=== PATIENT | female | born 1950 | race Caucasian/White ===

== ENCOUNTER 2023-10-28 06:17 | Day surgery (SDC) | payer OTHER, SELFPAY ==
[2023-10-24 13:26] VITALS: BMI 24.3
[2023-10-28 06:56] VITALS: BMI 23.4
[2023-10-28 06:59] VITALS: BP 152/69; PULSE 66; RESP 16; TEMP 36.1; O2SAT 99
--- NOTE | 2023-10-28 07:18 | HO.ANESPROP2 ---
HPI - Anesthesia Eval Consult details Narrative: 72 yo F presenting for colonoscopy [facility] Past Medical History Medical History Diverticulosis Neuropathy Osteoporosis HTN (hypertension) Surgical History Surgical History Hx of cholecystectomy History of colon resection History of total replacement of both hip joints History of surgery H/O colonoscopy History of Problems with Anesthesia: No Social History Social History Patient Tobacco Use Status: Never used Tobacco Use of substances other than those prescribed or required for medical reasons: No Are you DNR?: No Advance Directives: No Advance Directives Information Provided: Yes Meds Allergies Allergy/AdvReac Type Severity Reaction Status Date / Time amlodipine Allergy Unknown Verified 10/24/23 13:28 blueberry Allergy Unknown Verified 10/24/23 13:28 environmental allergies Allergy Unknown Verified 10/24/23 13:28 losartan Allergy Unknown Verified 10/24/23 13:28 Home Medications Medication Instructions Recorded Confirmed Last Taken Type albuterol sulfate 90 mcg/actuation 2 puff inhalation Q4-6H PRN 10/24/23 10/24/23 Unknown History aerosol inhaler (Ventolin HFA) Allergy Symptoms ascorbic acid (vitamin C) 125 mg 125 mg PO DAILY 10/24/23 10/24/23 Unknown History chewable tablet (Vitamin C) aspirin 81 mg tablet,delayed 81 mg PO DAILY 10/24/23 10/24/23 Unknown History release gabapentin 100 mg capsule 300 mg PO BEDTIME 10/24/23 10/24/23 Unknown History lisinopril 40 mg tablet 40 mg PO DAILY 10/24/23 10/24/23 Unknown History loratadine 10 mg tablet (Claritin) 10 mg PO DAILY 10/24/23 10/24/23 Unknown History meclizine 25 mg tablet 25 mg PO DAILY PRN Vertigo 10/24/23 10/24/23 Unknown History melatonin 3 mg tablet 3 mg PO BEDTIME 10/24/23 10/24/23 Unknown History montelukast 10 mg tablet 10 mg PO DAILY PRN Allergy Symptoms 10/24/23 10/24/23 Unknown History multivitamin 1 tab PO DAILY 10/24/23 10/24/23 Unknown History pantoprazole 20 mg tablet,delayed 20 mg PO DAILY 10/24/23 10/28/23 10/28/23 05:30 History release Exam Exam Date and Time: October 28, 2023 0720 Height,Weight and Vital Signs: Height 5 ft 3 in Weight 59.874 kg Last Vital Signs Temp 97.0 F 10/28/23 06:59 Pulse 66 10/28/23 06:59 Resp 16 10/28/23 06:59 BP 152/69 H 10/28/23 06:59 Pulse Ox 99 10/28/23 06:59 O2 Del Method Room Air 10/28/23 06:59 Airway Mallampati Class: I TM Dist: >3cm Neck ROM: Full Loose/Missing/Broken Teeth: No Heart: S1S2 Lungs: CTAB Assessment and Plan Assessment Anesthesia Assessment: Anesthesia Plan Discussed and Chart Reviewed Final Anesthetic Review History of Problems with Anesthesia: No NPO: Yes ASA Class: II Final Preanesthetic Review: No Changes in Pt Med Stat, Meds/Allgs Chart Reviewed, Consent Obtained/Reviewed and Anes Risks/Benef Reviewed Patient Risk: Low Procedure Risk: Low Anesthetic Plan Anesthetic Plan: MAC: and Agree w/ Assess. and Plan Disposition: Standard PACU
--- NOTE | 2023-10-28 07:34 | MHC.SHP ---
Pre-Procedural Eval Section A Date of Service: 10/28/23 Section B Chief Complaint: Encounter for screening for malignant neoplasm of Details of Present Illness: see H*P no changes Relevant Family History (Specify if Yes): No Relevant Social History: None Present Medications: None Allergies: Allergies Allergy/AdvReac Type Severity Reaction Status Date / Time amlodipine Allergy Unknown Verified 10/24/23 13:28 blueberry Allergy Unknown Verified 10/24/23 13:28 environmental allergies Allergy Unknown Verified 10/24/23 13:28 losartan Allergy Unknown Verified 10/24/23 13:28 Review of Systems Sugical H&P ROS: Negative: Constitution, Cardiovascular, Respiratory, Neurological, Psychiatric, Hem-Onc, Allergic/Immunologic, Gastrointestinal, Genitourinary, Musculoskeletal, Integumentary, Endocrine and Eyes/Ears/Nose/Throat Exam Surgical H&P Exam: Normal: HEENT, Normal: Heart, Normal: Lungs, Normal: Extremities, Normal: Abdomen, Normal: Skin and Normal: Neurological Plan Diagnosis/Plan: Unchanged I have reviewed the history and physical and performed a pertinent physical examination on my patient. No changes have occurred unless specified. Time Spent With Patient Time: Total time managing care of this patient today ____ minutes.
[2023-10-28 08:06] VITALS: BP 94/51; PULSE 59; RESP 15; O2SAT 95
--- NOTE | 2023-10-28 08:22 | OP_ITS ---
DATE OF SERVICE: 10/28/2023 SURGEON: Luis Felipe Arzate MD INDICATIONS: Colon cancer screening and family history of colon cancer. PREOPERATIVE DIAGNOSIS: POSTOPERATIVE DIAGNOSIS: PROCEDURE PERFORMED: Colonoscopy to the cecum with biopsy. ESTIMATED BLOOD LOSS: COMPLICATIONS: ANESTHESIA: Monitored anesthesia care. ASSISTANTS: SPECIMENS: DESCRIPTION OF PROCEDURE: A history and physical were performed. The risks and benefits of the procedure were explained to the patient. Informed consent was obtained. The patient was placed in left lateral decubitus position. A digital rectal exam was performed and was found to be normal. The Olympus pediatric video colonoscope was introduced into the rectum and advanced to the cecum. The cecum was identified by transillumination, palpation, and identification of ileocecal valve. Examination was performed, and the scope was removed. She tolerated the procedure well and returned to recovery in stable condition. FINDINGS: The terminal ileum was not examined. The visualized colonic mucosa was normal. The quality of the prep was good. A single polyp measuring less than 5 mm was identified at 65 cm, removed with biopsy forceps. No other polyps were identified. Retroflexed examination showed some small internal hemorrhoids. There was mild sigmoid diverticulosis. IMPRESSION: Colon polyp. RECOMMENDATION: Follow up the biopsy results. MD ROB Davis/KAVINL / [id number]
[2023-10-28 08:26] VITALS: BP 127/67; PULSE 57; RESP 18; TEMP 36.3; O2SAT 99
== END 2023-10-28 08:45 | disposition home or self-care (01) ==
PROVIDERS: PCP Internal Medicine; Visit Provider Internal Medicine Gastroenterology
PROC: 0DJD8ZZ Inspection of Lower Intestinal Tract, Via Natural or Artificial Opening Endoscopic (ICD-10-PCS; CPT 45378; principal; 2023-10-28 07:30)
DX: Z12.11 Encounter for screening for malignant neoplasm of colon (principal); Z80.0 Family history of malignant neoplasm of digestive organs; D12.4 Benign neoplasm of descending colon; K57.30 Diverticulosis of large intestine without perforation or abscess without bleeding; K64.8 Other hemorrhoids; I10 Essential (primary) hypertension; G62.9 Polyneuropathy, unspecified; M81.0 Age-related osteoporosis without current pathological fracture; Z90.49 Acquired absence of other specified parts of digestive tract; Z96.643 Presence of artificial hip joint, bilateral; Z79.82 Long term (current) use of aspirin; Z79.83 Long term (current) use of bisphosphonates; Z79.899 Other long term (current) drug therapy; Z88.8 Allergy status to other drugs, medicaments and biological substances
CPT/HCPCS: 45380; 88305; J2704

== ENCOUNTER 2024-09-21 06:47 | Day surgery (SDC) | payer OTHER, SELFPAY ==
[2024-09-17 14:07] VITALS: BMI 24.3
--- NOTE | 2024-09-20 10:18 | HO.ANESPROP2 ---
Documented by User: Ariadna Payne NP 09/20/24 10:18 HPI - Anesthesia Eval Consult details Narrative: 73yo F for Upper Endoscopy [facility] Past Medical History Medical History Diverticulosis Neuropathy Osteoporosis HTN (hypertension) Surgical History Surgical History Hx of cholecystectomy History of colon resection History of total replacement of both hip joints History of surgery H/O colonoscopy History of Problems with Anesthesia: No Social History Social History Patient Tobacco Use Status: Never used Tobacco Use of substances other than those prescribed or required for medical reasons: No Have you been hit, kicked, punched, or otherwise hurt by someone within the past year? If so, by whom?: No Are you DNR?: No Advance Directives: No Advance Directives Information Provided: Yes Recently lost weight without trying: No Nutrition Risks: No Nutritional Risk Meds Allergies Allergy/AdvReac Type Severity Reaction Status Date / Time amlodipine Allergy Unknown Verified 09/21/24 07:34 blueberry Allergy Unknown Verified 09/21/24 07:34 environmental allergies Allergy Unknown Verified 09/21/24 07:34 losartan Allergy Unknown Verified 09/21/24 07:34 Home Medications ?Medication ?Instructions ?Recorded ?Confirmed ?Last Taken ?Type albuterol sulfate 90 mcg/actuation 2 puff inhalation Q4-6H PRN 10/24/23 09/17/24 Unknown History aerosol inhaler (Ventolin HFA) Allergy Symptoms ascorbic acid (vitamin C) 125 mg 125 mg PO DAILY 10/24/23 09/17/24 Unknown History chewable tablet (Vitamin C) gabapentin 100 mg capsule 300 mg PO BEDTIME 10/24/23 09/17/24 Unknown History lisinopril 40 mg tablet 40 mg PO DAILY 10/24/23 09/17/24 Unknown History loratadine 10 mg tablet (Claritin) 10 mg PO DAILY 10/24/23 09/21/24 09/21/24 History meclizine 25 mg tablet 25 mg PO TID PRN Vertigo 10/24/23 09/17/24 Unknown History melatonin 3 mg tablet 3 mg PO BEDTIME PRN Insomnia 10/24/23 09/17/24 Unknown History multivitamin 1 tab PO DAILY 10/24/23 09/17/24 Unknown History pantoprazole 20 mg tablet,delayed 20 mg PO DAILY PRN Acid Reflux 10/24/23 09/21/24 09/21/24 History release Exam Height,Weight and Vital Signs: Height 5 ft 3 in Weight 62.142 kg Assessment and Plan Assessment Anesthesia Assessment: Chart Reviewed Final Anesthetic Review History of Problems with Anesthesia: No Documented by User: Ailin Travis MD 09/21/24 09:22 [facility] Past Medical History Medical History Diverticulosis Neuropathy Osteoporosis HTN (hypertension) Family History Family history of problems with anesthesia: No Surgical History Surgical History Hx of cholecystectomy History of colon resection History of total replacement of both hip joints History of surgery H/O colonoscopy Social History Social History Patient Tobacco Use Status: Never used Tobacco Use of substances other than those prescribed or required for medical reasons: No Have you been hit, kicked, punched, or otherwise hurt by someone within the past year? If so, by whom?: No Are you DNR?: No Advance Directives: No Advance Directives Information Provided: Yes Recently lost weight without trying: No Nutrition Risks: No Nutritional Risk Meds Allergies Allergy/AdvReac Type Severity Reaction Status Date / Time amlodipine Allergy Unknown Verified 09/21/24 07:34 blueberry Allergy Unknown Verified 09/21/24 07:34 environmental allergies Allergy Unknown Verified 09/21/24 07:34 losartan Allergy Unknown Verified 09/21/24 07:34 Home Medications ?Medication ?Instructions ?Recorded ?Confirmed ?Last Taken ?Type albuterol sulfate 90 mcg/actuation 2 puff inhalation Q4-6H PRN 10/24/23 09/17/24 Unknown History aerosol inhaler (Ventolin HFA) Allergy Symptoms ascorbic acid (vitamin C) 125 mg 125 mg PO DAILY 10/24/23 09/17/24 Unknown History chewable tablet (Vitamin C) gabapentin 100 mg capsule 300 mg PO BEDTIME 10/24/23 09/17/24 Unknown History lisinopril 40 mg tablet 40 mg PO DAILY 10/24/23 09/17/24 Unknown History loratadine 10 mg tablet (Claritin) 10 mg PO DAILY 10/24/23 09/21/24 09/21/24 History meclizine 25 mg tablet 25 mg PO TID PRN Vertigo 10/24/23 09/17/24 Unknown History melatonin 3 mg tablet 3 mg PO BEDTIME PRN Insomnia 10/24/23 09/17/24 Unknown History multivitamin 1 tab PO DAILY 10/24/23 09/17/24 Unknown History pantoprazole 20 mg tablet,delayed 20 mg PO DAILY PRN Acid Reflux 10/24/23 09/21/24 09/21/24 History release Exam Airway Mallampati Class: II TM Dist: >3cm Neck ROM: Full Heart: rrr Lungs: cta Assessment and Plan Assessment Anesthesia Assessment: Anesthesia Plan Discussed Final Anesthetic Review Family History of Problems with Anesthesia: No NPO: Yes ASA Class: II Final Preanesthetic Review: No Changes in Pt Med Stat, Meds/Allgs Chart Reviewed, Consent Obtained/Reviewed and Anes Risks/Benef Reviewed Patient Risk: Low Procedure Risk: Low Anesthetic Plan Anesthetic Plan: MAC: Disposition: Standard PACU
[2024-09-21 07:15] VITALS: BMI 24.8
[2024-09-21 07:51] VITALS: BP 167/89; PULSE 76; RESP 16; TEMP 36.6; O2SAT 99
[2024-09-21] MEDS: Lactated Ringers 1,000 ML 100 ML IVCONT (07:52)
--- NOTE | 2024-09-21 08:11 | MHC.SHP ---
Pre-Procedural Eval Section A - 24 Hr Update-Section A only Date of Service: 09/21/24 Section B - Complete if H&P > 30 days Chief Complaint: Abnormal findings on diagnostic imaging of other Details of Present Illness: see H*P no changes Relevant Family History (Specify if Yes): No Relevant Social History: None Present Medications: see Short Stay Collaborative assessment Medical History: No relevant PMH History of Previous Operations: No relevant previous surgery Allergies: Allergies Allergy/AdvReac Type Severity Reaction Status Date / Time amlodipine Allergy Unknown Verified 09/21/24 07:34 blueberry Allergy Unknown Verified 09/21/24 07:34 environmental allergies Allergy Unknown Verified 09/21/24 07:34 losartan Allergy Unknown Verified 09/21/24 07:34 Review of Systems Sugical H&P ROS: Negative: Constitution, Cardiovascular, Respiratory, Neurological, Psychiatric, Hem-Onc, Allergic/Immunologic, Gastrointestinal, Genitourinary, Musculoskeletal, Integumentary, Endocrine and Eyes/Ears/Nose/Throat Exam Surgical H&P Exam: Normal: HEENT, Normal: Heart, Normal: Lungs, Normal: Extremities, Normal: Abdomen, Normal: Skin and Normal: Neurological Plan Diagnosis/Plan: Unchanged I have reviewed the history and physical and performed a pertinent physical examination on my patient. No changes have occurred unless specified. Time Spent With Patient Time: Total time managing care of this patient today ____ minutes.
[2024-09-21 08:38] VITALS: BP 125/72; PULSE 71; RESP 16; TEMP 36.4; O2SAT 99
--- NOTE | 2024-09-21 08:42 | P.BOP_ITS ---
Brief Operative Note Date of Service: 09/21/24 Pre-op diagnosis: abnl ugi Post-op diagnosis: same Surgeon: Luis Felipe Arzate MD Anesthesia: MAC Was an Vocational Rehabilitation Consultant used for this Procedure?: No Estimated blood loss (mL): 5 Pathology: other Condition: stable Disposition: PACU
[2024-09-21 08:53] VITALS: BP 131/71; PULSE 66; RESP 18; TEMP 36.3; O2SAT 98
--- NOTE | 2024-09-21 09:03 | OP_ITS ---
DATE OF SERVICE: 09/21/2024 SURGEON: Luis Felipe Arzate MD INDICATIONS: Abnormal upper GI series. PREOPERATIVE DIAGNOSIS: POSTOPERATIVE DIAGNOSIS: PROCEDURE PERFORMED: Upper endoscopy with biopsy. ESTIMATED BLOOD LOSS: COMPLICATIONS: ANESTHESIA: Medications, monitored anesthesia care. ASSISTANTS: SPECIMENS: DESCRIPTION OF PROCEDURE: A history and physical performed. The risks and benefits of the procedure were explained to the patient. Informed consent was obtained. The patient was placed in the left lateral decubitus position. The Olympus video gastroscope was introduced into the esophagus, stomach, and duodenum. Examination was performed. The scope was removed. She tolerated the procedure well and returned to recovery area in stable condition. FINDINGS: Esophagus: The esophagus was examined and showed some mild nonspecific dilation. The EG junction was normal. Biopsies were obtained from the EG junction. There was a small sliding hiatal hernia. Stomach: The stomach showed multiple benign-appearing gastric polyps, mainly in the body and fundus. The largest of these measured approximately 15 mm. These were biopsied. There was some retained food in the body of the stomach. Antral biopsies were obtained. Duodenum: The bulb and 2nd portion were normal. IMPRESSION: 1. Gastric polyps. 2. Hiatal hernia. RECOMMENDATION: Follow up the biopsy results. MD ROB Davis/NARDA / [id number]
== END 2024-09-21 09:10 | disposition home or self-care (01) ==
PROVIDERS: PCP Internal Medicine; Visit Provider Internal Medicine Gastroenterology
PROC: 0DJ08ZZ Inspection of Upper Intestinal Tract, Via Natural or Artificial Opening Endoscopic (ICD-10-PCS; CPT 43235; principal; 2024-09-21 08:20)
DX: K31.7 Polyp of stomach and duodenum (principal); K44.9 Diaphragmatic hernia without obstruction or gangrene; Z80.0 Family history of malignant neoplasm of digestive organs; K57.30 Diverticulosis of large intestine without perforation or abscess without bleeding; I10 Essential (primary) hypertension; G62.9 Polyneuropathy, unspecified; M81.0 Age-related osteoporosis without current pathological fracture; Z79.899 Other long term (current) drug therapy; Z88.8 Allergy status to other drugs, medicaments and biological substances; Z90.49 Acquired absence of other specified parts of digestive tract
CPT/HCPCS: 43239; 88305; 88313; 88342; J2003; J2704